=== PATIENT | male | born 1955 | race Hispanic/Latino ===

== ENCOUNTER 2017-08-15 06:09 | Inpatient (IN) | payer OTHER ==
[2017-08-12 11:54] VITALS: BMI 36.1
--- NOTE | 2017-08-15 06:49 | CP.PCM.HP ---
History of Present Illness - History of Present Illness History of Present Illness: CC: Here for scheduled R hip surgery HPI: This is a 61 y/o male with no chronic medical conditions aside from osteoarthritis, who comes in today for R hip replacement. Patient denies any CP , SOB. Denies any f/c/n/v/d. Has no complaints or concerns at this time. Clearance for surgery in Chart by Dr. Jeronimo Daniel ROS: 14 systems reviewed, negative other than HPI MHx: Osteoarthritis SHx: 4 eye surgeries this year, back surgery in the past, appendectomy and removal of a large colon polyp in the past Allergies: None Medications: Per med rec Family Hx: No relevant history found Social Hx: Lives with family, no EtOH, 2 cigars daily Present on Admission - Present on Admission Any Indicators Present on Admission: No Past Patient History - Past Medical History & Family History Past Medical History?: Yes - Past Social History Smoking Status: Heavy Smoker > 10 Cigarettes Daily - CARDIAC Hx Cardiac Disorders: No - PULMONARY Hx Respiratory Disorders: No - NEUROLOGICAL Hx Neurological Disorder: No - HEENT Hx HEENT Problems: Yes Hx Cataracts: Yes - RENAL Hx Chronic Kidney Disease: No - ENDOCRINE/METABOLIC Hx Endocrine Disorders: No - HEMATOLOGICAL/ONCOLOGICAL Hx Blood Disorders: No - INTEGUMENTARY Hx Dermatological Problems: No - MUSCULOSKELETAL/RHEUMATOLOGICAL Hx Musculoskeletal Disorders: Yes Hx Arthritis: Yes (hip) - GASTROINTESTINAL Hx Gastrointestinal Disorders: No - GENITOURINARY/GYNECOLOGICAL Hx Genitourinary Disorders: No - PSYCHIATRIC Hx Psychophysiologic Disorder: No - SURGICAL HISTORY Hx Surgeries: Yes Hx Eye Surgery: Yes (shahana) Other/Comment: detached retina, - ANESTHESIA Hx Anesthesia: Yes Hx Anesthesia Reactions: No Has any member of the family had a problem w/ anesthesia?: No Meds Allergies/Adverse Reactions: Allergies Allergy/AdvReac Type Severity Reaction Status Date / Time No Known Allergies Allergy Verified 08/12/17 11:55 Physical Exam - Constitutional Appears: No Acute Distress - Head Exam Head Exam: ATRAUMATIC, NORMOCEPHALIC - Eye Exam Eye Exam: EOMI, PERRL - ENT Exam ENT Exam: Mucous Membranes Moist - Neck Exam Neck exam: Positive for: Full Rom - Respiratory Exam Respiratory Exam: Clear to Auscultation Bilateral, NORMAL BREATHING PATTERN - Cardiovascular Exam Cardiovascular Exam: REGULAR RHYTHM, +S1, +S2 - GI/Abdominal Exam GI & Abdominal Exam: Normal Bowel Sounds, Soft - Extremities Exam Extremities exam: Positive for: full ROM, normal inspection - Neurological Exam Neurological exam: Alert, CN II-XII Intact, Oriented x3 - Psychiatric Exam Psychiatric exam: Normal Affect, Normal Mood - Skin Skin Exam: Dry, Warm Assessment & Plan (1) Status post right hip replacement Assessment and Plan: 61 y/o male presenting for scheduled R hip replacement 2/2 osteoarthritis. 1) R hip surgery -Clearance in chart -Routine post op care after surgery 2) DVT PPx -- per ortho recs Status: Acute (2) DVT prophylaxis Status: Acute
[2017-08-15 06:52] LABS: MEAN CELL VOLUME 90.9 fl (80.0-94.0); MEAN CORPUSCULAR HEMOGLOBIN 30.7 pg (27.0-31.0); MEAN CORPUSCULAR HGB CONC 33.8 g/dL (33.0-37.0); RBC 4.9 Mil/uL (4.40-5.90); WHITE BLOOD COUNT 9.7 K/uL (4.8-10.8)
[2017-08-15] MEDS ORDERED: Lidocaine 4% (Laryng-O-Jet) Kit MM ONE (07:18)
[2017-08-15] MEDS ORDERED: Propofol 10 mg/ml Inj (20 ML) ONE (07:18)
[2017-08-15] MEDS ORDERED: Phenylephrine 10 mg/ml Inj ONE ×2 (07:18→11:05)
[2017-08-15] MEDS ORDERED: Vecuronium 10 mg Inj ONE (07:18)
[2017-08-15] MEDS ORDERED: Etomidate 20 mg/10ml Inj IV ONE (07:18)
[2017-08-15] MEDS ORDERED: Succinylcholine 200 mg/10 ml Inj IV ONE (07:18)
[2017-08-15] MEDS ORDERED: Bacitracin Ointment 30 GM TUBE ONE (07:23)
[2017-08-15] MEDS ORDERED: Absorbable Gelatin Sponge Size 100 ONE ×2 (07:23→09:52)
[2017-08-15] MEDS ORDERED: Thrombin Topical 5,000 Int Units Spray Kit ONE ×2 (07:24→09:52)
--- NOTE | 2017-08-15 07:42 | CP.PCM.CON ---
History of Present Illness - History of Present Illness History of Present Illness: Orthopedic consultation Dr. Long 61M complains of right hip pain failed conservative mgmt and elected for THR. no history of bleeding/blood clots, stents, CAD PSH: lumbar fusion, removal of polyp, eye surgery right x 4, left x2 PMH: DJD NKDA Meds: baby aspirin, vitamins Review of Systems - Review of Systems All systems: reviewed and no additional remarkable complaints except - Musculoskeletal Musculoskeletal: As Per HPI Past Patient History - Past Medical History & Family History Past Medical History?: Yes Past Family History: Reviewed and not pertinent - Past Social History Smoking Status: Heavy Smoker > 10 Cigarettes Daily - CARDIAC Hx Cardiac Disorders: No - PULMONARY Hx Respiratory Disorders: No - NEUROLOGICAL Hx Neurological Disorder: No - HEENT Hx HEENT Problems: Yes Hx Cataracts: Yes - RENAL Hx Chronic Kidney Disease: No - ENDOCRINE/METABOLIC Hx Endocrine Disorders: No - HEMATOLOGICAL/ONCOLOGICAL Hx Blood Disorders: No - INTEGUMENTARY Hx Dermatological Problems: No - MUSCULOSKELETAL/RHEUMATOLOGICAL Hx Musculoskeletal Disorders: Yes Hx Arthritis: Yes (hip) - GASTROINTESTINAL Hx Gastrointestinal Disorders: No - GENITOURINARY/GYNECOLOGICAL Hx Genitourinary Disorders: No - PSYCHIATRIC Hx Psychophysiologic Disorder: No - SURGICAL HISTORY Hx Surgeries: Yes Hx Eye Surgery: Yes (shahana) Other/Comment: detached retina, - ANESTHESIA Hx Anesthesia: Yes Hx Anesthesia Reactions: No Has any member of the family had a problem w/ anesthesia?: No Meds Allergies/Adverse Reactions: Allergies Allergy/AdvReac Type Severity Reaction Status Date / Time No Known Allergies Allergy Verified 08/12/17 11:55 - Medications Medications: Current Medications Tranexamic Acid 1,000 mg/ (Sodium Chloride) 100 mls @ 10 mls/min IVPB Q3 DERREK Stop: 08/15/17 10:09 Physical Exam - Constitutional Appears: Well, No Acute Distress - Respiratory Exam Respiratory Exam: NORMAL BREATHING PATTERN - Expanded Lower Extremities Exam Right Ankle exam: FULL ROM (calves soft NT neg homans) Neuro vacular tendon exam: no vascular compromise (+DP/PT pulses, sensation intact) - Neurological Exam Neurological exam: Alert, Oriented x3 - Psychiatric Exam Psychiatric exam: Normal Affect, Normal Mood - Skin Skin Exam: Dry, Intact, Normal Color, Warm Results - Vital Signs Recent Vital Signs: Last Vital Signs Temp 98 F 08/15/17 06:55 Pulse 71 08/15/17 06:57 Resp 20 08/15/17 06:55 BP 139/81 08/15/17 06:55 Pulse Ox 97 08/15/17 06:55 - Labs Result Diagrams: 08/16/17 05:40 08/16/17 05:40 Labs: Laboratory Results - last 24 hr 08/15/17 08/15/17 06:45 06:45 WBC 9.7 RBC 4.90 Hgb 15.0 Hct 44.5 MCV 90.9 MCH 30.7 MCHC 33.8 RDW 14.0 Plt Count 222 Crossmatch See Detail BBK History Checked No verified bt Assessment & Plan (1) Degenerative joint disease of right hip Assessment and Plan: NPO T&C for OR Status: Acute
[2017-08-15] MEDS ORDERED: Lactated Ringer's 1,000 ML IV ONE ×4 (07:55→12:45)
[2017-08-15] MEDS ORDERED: Midazolam 2 MG/2 ML VIAL ONE (07:59)
[2017-08-15] MEDS ORDERED: Morphine 1 mg/ml preservative-free Inj(Duramorph) ONE (08:08)
[2017-08-15] MEDS ORDERED: Rocuronium 10 mg/ml (5 ml) ONE ×2 (09:10→11:19)
[2017-08-15] MEDS ORDERED: Dexamethasone 4 mg/1 ml ONE (09:22)
[2017-08-15] MEDS ORDERED: Sevoflurane - Inhalation Anesthetic Liq (250 ml) ONE (10:32)
[2017-08-15] MEDS ORDERED: HEMOSTATIC MATRIX 10 ML DIS.NEEDLE TOP ONE ×2 (10:55→12:40)
--- NOTE | 2017-08-15 11:01 | RAD ---
HISTORY: pre-op COMPARISON: No prior. TECHNIQUE: Chest PA and lateral FINDINGS: LUNGS: No active pulmonary disease. PLEURA: No significant pleural effusion identified. No pneumothorax apparent. CARDIOVASCULAR: No radiographic findings to suggest acute or significant cardiovascular disease. OSSEOUS STRUCTURES: No significant abnormalities. VISUALIZED UPPER ABDOMEN: Normal. OTHER FINDINGS: None. IMPRESSION: No active disease.
[2017-08-15] MEDS ORDERED: ceFAZolin IV 2 gm in Dextrose 4 GM/100 ML BAG IVPB ONE (12:53)
[2017-08-15] MEDS ORDERED: HYDROmorphone 0.5 mg/0.5 ml ISec IVP PRN (13:45)
--- NOTE | 2017-08-15 13:55 | PCM.SURG1 ---
Surgeon's Initial Post Op Note - Surgeon's Notes Surgeon: Mercedes Procurement Representative: LUIS MIGUEL Holland CRNFA Type of Anesthesia: General Endo, Spinal Anesthesia Administered By: DR Horacio Quarles Pre-Operative Diagnosis: Severe Osteoarthritis R hip. Morbid obesity Operative Findings: Severe O/A R HIP with femoral shaft deformity ( Garima type A/ B bone) Post-Operative Diagnosis: severe O/A R Hip. Morbid obesity. iliopsoas contracture. femoral shaft perforation/fracture Operation Performed: R THR. \Open treatment of femoral shaft fracture/ perforation with autograft bone graft. release iliopsoas tendon. auotgraft boine graft to acetabulum and femur Specimen/Specimens Removed: bone cartilage synovium Estimated Blood Loss: EBL {In ML}: 500 Blood Products Given: N/A Drains Used: Wound Vac Post-Op Condition: Fair Date of Surgery/Procedure: 08/15/17 Time of Surgery/Procedure: 09:15 (time in room/anaesthesia indcution time 7:50)
--- NOTE | 2017-08-15 16:30 | RAD ---
PROCEDURE: Right Hip with Pelvis Radiographs. HISTORY: pt in PACU s/p THR COMPARISON: None. FINDINGS: BONES: No acute fracture or destructive bony lesion identified involving pelvic ring or the proximal right femur. Patient is seen to be status post right shoulder replacement as well as inferior lumbar posterior spinal fusion. Note, due to body habitus, suboptimal exposure results. JOINTS: No subluxation or dislocation. Pubic symphysis appears intact although degenerative changes seen the bilateral sacroiliac and left hip joints. SOFT TISSUES: Normal. OTHER FINDINGS: None. IMPRESSION: Limited exam due to body habitus. No fracture dislocation is appreciated. The right total replacement hardware appears in position without subluxation or other failure. Degenerative sacroiliac and left hip joint changes are identified.
[2017-08-15] MEDS ORDERED: ceFAZolin IV 2 gm in Dextrose 2 GM/50 ML BAG IVPB SCH (17:00)
--- NOTE | 2017-08-15 18:04 | RAD ---
PROCEDURE: Fluoroscopy in excess of 1 hour. HISTORY: RIGHT HIP ORIF COMPARISON: None TECHNIQUE: Standard protocol for this study/examination. FINDINGS: Total fluoroscopic time (continuous mode) utilized during the procedure (seconds) 41.7. IMPRESSION: Submitted images from the current procedure: 6.0.
[2017-08-15] MEDS ORDERED: oxyCODONE 10 mg Immediate Release Tab PO PRN (18:14)
[2017-08-15] MEDS: Lactated Ringer's 1,000 ML IV SCH ×2 (19:45→23:05)
[2017-08-15] MEDS: ceFAZolin IV 2 gm in Dextrose 2 GM/50 ML BAG IVPB SCH (21:30)
--- NOTE | 2017-08-15 22:29 | CARD ---
APPROVED REPORT EKG Measurement Heart [id number] <Conclusion> Normal sinus rhythm Normal ECG
--- NOTE | 2017-08-16 00:18 | OP ---
PROCEDURE DATE: 08/15/2017 PREOPERATIVE DIAGNOSES: 1. Severe osteoarthritis of the right hip. 2. Morbid obesity. POSTOPERATIVE DIAGNOSES: 1. Severe osteoarthritis of the right hip. 2. Morbid obesity for the complexion modifier. 3. Iliopsoas contracture. 4. 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 OPERATIVE FINDINGS: 1. Severe osteoarthritis of the right hip. 2. 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 OPERATION PERFORMED: 1. Complex right total hip replacement arthroplasty. 2. Open treatment of the femoral shaft perforation/fracture with autograft bone grafting from the acetabular reaming. 3. Release iliopsoas tendon. 4. Autograft bone grafting to the acetabulum and femur. 5. Positioning of fluoroscope interpretation of video images. SURGEON: Shady Long MD HOTHOUSE WORKER: Radha Livingston PA-C [employer] SENIOR OFFICER: Christen Martinez, certified registered nursing assistant in nursing. ANESTHESIA: General endotracheal anesthesia/spinal anesthesia. ANESTHESIOLOGIST: David Hernandez MD SPECIMENS REMOVED: Bone, cartilage, and synovium. BLOOD LOSS: Approximately 500 mL. Tranexamic acid 2 gram was employed. Cade blood products given. DRAINS: ABDULLAHI wound VAC drain applied. POSTOPERATIVE CONDITION: Stable. TIME IN THE ROOM ANESTHESIA INDUCTION TIME: 07:50. TIME OF SURGERY: 09:15. END TIME: 13:48. OPERATIVE INDICATION: Jason Martin is a 61-year-old gentleman who presented with severe pain and restricted range of motion of the right hip. The patient had a history of prior lumbar surgery, but the patient has a primary severe osteoarthritis of the hip. The patient has been suffering for years with this, the patient presented having failed conservative management consisting of attempted weight loss, activity modification, and therapy. The patient's spinal surgery did not help this hip problem whatsoever. The patient wished the surgery be done as soon as possible. Pros, cons, risks, and benefits of anterior approach total hip replacement arthroplasty were discussed with the patient. The possibility of fracture, nerve injury, mechanical failure, infection, thromboembolic disease, leg-length inequality, secondary, or tertiary surgery was discussed. The patient no longer can withstand the discomfort and wished the surgery to be accomplished. OPERATIVE PROCEDURE: After having obtained informed consent in the above fashion, after having identified side, site, and procedure, and a critical pause/time-out after the satisfactory induction of the anesthetic, the patient identified as Jason Martin, is placed in supine position in the [facility] traction positioner. Right lower extremity traction is applied. Verification of position was offered on image intensification views. This having been accomplished, the all bony prominences are well-padded. After the satisfactory induction of spinal and general anesthesia, after having identified side, site, and procedure, and a critical pause/time-out, after having obtained informed consent, again the patient identified as Jason Martin, is placed in a supine position in the [facility] traction positioner. All bony prominences were well padded. The pannus is reflected. Again the patient is morbidly obese and this patient's surgery does deserve a complexity modifier for the length of the surgery 3 hours and 55 minutes, as well as the morbid obesity, the patient has a BMI of approximately 42. After sterilely prepping and draping, after having identified side, site, procedure, and a critical pause/time-out, after the satisfactory induction of the anesthetic, under the surgeon's direction, the fluoroscope was positioned, video images were generated, and therapeutic decisions were made therefrom. This having been accomplished, the topographic anatomy of the hip was marked, the anterior superior iliac spine, greater trochanter at a point 1 cm distal to the ASIS and 3 cm posterior. An incision was described 4-1/2 inches in length superficial to the tensor fascia femoris muscle. The skin incision was carried down through the skin and subcutaneous tissue. The fascia on the tensor fascia femoris was identified and is divided. This having been accomplished, the tensor fascia femoris is split distally and proximally. The Allis clamp was placed and this having been accomplished, the tensor fascia femoris is taken down from the investing fascia. The Medacta retractor was placed in a vertical fashion and the rectus femoris was identified as well as the posterior aspect of this digastric muscle. This having been accomplished, great care was taken to identify the origin of the tensor fascia femoris, and at this point in time, the reflected head of rectus femoris was identified. With the hip in some mild internal rotation applied by the traction, with the Cobra retractor placed, the reflected head of the rectus femoris is released, small fat pad superficial to that tendon is identified and is removed. This having been accomplished, the hip was brought into neutral and the fascia is carefully divided. After the rectus femoris had been elevated from the underlying fascia and the deep modified Ayana Flaherty retractor was now placed horizontally. This having been accomplished, the fascial layer was divided cell layer by cell layer and the lateral femoral circumflex vessels were identified as well as the anterior branch of the lateral femoral circumflex vessels. This having been accomplished, the Medacta Hohmann retractor was placed and a hip capsulotomy and capsulectomy was accomplished extending to the lesser trochanter and that flap was elevated laterally. The reflected head of rectus femoris is released, having been released, stay sutures applied. The capsule was carefully debrided and released a bit to allow for exposure of the femoral neck. Again, under the surgeon's direction, the fluoroscope was positioned, video images were generated, and therapeutic decisions specifically with respect to the osteotomy were accomplished. This having been accomplished, the femoral neck osteotomy is measured, identified, and the femoral neck osteotomy was accomplished, so as not to osteotomize or injure the greater trochanter. This having been accomplished, the osteotome was placed and the leg, at this point in time, was externally rotated, exposing the cut femoral neck. At this point in time, the corkscrew was introduced into the cut femoral neck and the head and neck are debrided off adhesions and the head and neck is removed from the acetabulum. This having been accomplished, the head having been removed, the head was measured to 48 mm, and at this point in time, the labrum was carefully debrided. The Medacta retractor was placed laterally at the lateral margin of the acetabulum and the posterior labrum was excised and the anterior labrum was excised as well. There is a portion of the pubofemoral ligament, which was identified, and was carefully released. This having been accomplished, the pulvinar was controlled with the Aquamantys and the pulvinar is removed in sections. Hemostasis was controlled with both the electrocautery, the Aquamantys, and thrombin and Gelfoam was employed as well as there was some brisk bleeding in the area of the cotyloid fossa. Retractors having been placed, the preoperative planning having been accomplished, sequential reaming was carried out both medially and then superiorly using the reamer, the reamer again having been placed medially and superiorly. Reaming is accomplished through 54 mm. A 54-mm reamer was trialed and found to be acceptable. Verification of position is offered on image intensification views. At this point in time, autograft bone grafting from the reaming, so the reaming have been and denuded from the articular cartilage. The reamings were placed in the acetabulum and the 54 mm outer shell was impacted for the Medacta dual mobility construct. This having been accomplished, the wound was thoroughly irrigated and attention was turned to the femur. External rotation of the femur was carried out to 45 degrees and approximately to 60 degrees, the pubofemoral ligament is placed on stretch, and the iliopsoas tendon was partially released as well. The pubofemoral ligament is released. The Iliopsoas tendon is released. The iliofemoral ligament is released from the margin of the trochanter 1 cm posterior to the acetabulum in that watershed region. Incision was carried down until the fat is exposed and the trochanter is somewhat mobilized. At this point in time, using a combination of the electrocautery, the piriformis fossa, but not the piriformis tendon, is carefully released. At this point in time, with further external rotation, passing 155 degrees, the Medacta retractors were placed placed medially and the trochanteric retractor placed as well to expose the greater trochanter. The bridge of bone between the neck of the trochanter was removed using the box chisel and the bur. With the lower extremity now adducted, the proximal femur was exposed and a femoral neck osteotomy is accomplished to remove a few more millimeters of bone from the neck cut, which was a bit proud. This having been accomplished, the femoral shaft was found again, there is deformity, specifically Marion type A/B bone was encountered and the bur was needed to open the canal. The canal was opened and the red tooth rasp was placed. At this point in time, the sequential broaching was accomplished and during that broaching, there was a perforation of the femoral shaft, femoral shaft fracture approximately one fingerbreadth-two fingerbreadths below the lesser trochanter. This was easily bypassed greater than two diameters of the femoral shaft with the femoral component. This having been accomplished, again, because the nature of the deformity and the severe Marion type A bone, the guidewire for the flexible reamers introduced into the femur and flexible reaming was carried out to approximately 9.5 mm. At this point in time, the rasp is introduced and the rat tooth rasp was introduced past the perforation. At this point in time, sequential broaching was carried out to a #4 femoral component. It should be noted that the perforation/fracture of the femoral shaft was treated with autograft bone grafting. Copious autograft bone grafting was accomplished, the rasp was used to trial the #54 outer bearing with 28 mm zero neutral head. The fit was found to be excellent, the push-pull was found to be stable, the leg lengths were found to be precisely equal. This having been accomplished, the rasp was removed. The Medacta #4 femoral component was introduced with a 28 mm ceramic head and the 54 mm outer bearing. This was affixed. The hip was reduced and found to be stable in all planes and at this point in time, FloSeal was used to control bleeding. There was some bleeding encountered with the mobilization of the femur. It should be noted that the patient's femur was extremely rigid and very difficult to mobilize. The verification of position is offered on image intensification views. Again autograft bone grafting was accomplished copiously into the fracture in the intramedullary fashion in an impaction grafting type of technique. The femoral stem was introduced. The 28 mm head and the outer bearing were applied. The hip was reduced and found to be stable in all planes. The wound was thoroughly irrigated. Hemostasis controlled with the Aquamantys. Closure is in layers. It should be noted that because of the excessive retracting, the skin had to be modified. Excision of skin, subcutaneous tissue, and a bit of muscle was accomplished. Hemostasis controlled. Closure of the fascia on the tensor fascia femoris was with #1 Quill, is followed by 0 Quill, 2-0 Vicryl, and 2-0 Quill plastic closure with interrupted 4-0 nylon. A compression dressing was applied and the ABDULLAHI wound VAC was applied as well. The ABDULLAHI wound VAC is carefully applied to the wound and the wound VAC was applied. OPERATIVE PROCEDURE: 1. Complex right total hip replacement arthroplasty. 2. Open treatment of the femoral shaft fracture perforation proximally. 3. Release iliopsoas tendon. 4. Autograft bone graft to the acetabulum and the femur. 5. Application of ABDULLAHI wound VAC. 6. Positioning of fluoroscope interpretation of video images. Again it should be noted that the assistantship of Radha Livingston PA-C was essential to the completion of this operative goal as was Christen Martinez, certified registered nursing assistant in nursing. Shady Long MD
[2017-08-16] MEDS: ceFAZolin IV 2 gm in Dextrose 2 GM/50 ML BAG IVPB SCH ×3 (05:17→20:58)
[2017-08-16 06:12] LABS: HEMOGLOBIN 10.9 g/dL (12.0-18.0); MEAN CORPUSCULAR HEMOGLOBIN 30.3 pg (27.0-31.0); MEAN CORPUSCULAR HGB CONC 33.3 g/dL (33.0-37.0); RBC 3.59 Mil/uL (4.40-5.90); RED CELL DISTRIBUTION WIDTH 13.8 % (11.5-14.5); WHITE BLOOD COUNT 14.1 K/uL (4.8-10.8)
[2017-08-16 06:43] LABS: BLOOD UREA NITROGEN 34 mg/dl (9-20); GFR AFRICAN-AMERICAN > 60; GFR NON-AFRICAN AMERICAN 51
--- NOTE | 2017-08-16 07:44 | CP.PCM.PN ---
Subjective - Date & Time of Evaluation Date of Evaluation: 08/16/17 Time of Evaluation: 07:43 - Subjective Subjective: Patient seen and examined at bedside comfortable. Minimal pain this AM. Olivia diet. No acute events overnight. Objective - Vital Signs/Intake and Output Vital Signs (last 24 hours): Temp Pulse Resp BP Pulse Ox 98.1 F 85 19 117/74 94 L 08/16/17 03:30 08/16/17 03:30 08/16/17 03:30 08/16/17 03:30 08/16/17 03:30 Intake and Output: 08/16/17 08/16/17 06:59 18:59 Output Total 850 Balance -850 - Medications Medications: Current Medications Acetaminophen (Tylenol 325mg Tab) 650 mg PO Q4 PRN PRN Reason: Fever 101 degrees fahrenheit Acetaminophen (Tylenol 325mg Tab) 650 mg PO Q6 [facility] Docusate Sodium (Colace) 100 mg PO BID [facility] Last Admin: 08/15/17 17:38 Dose: 100 mg Enoxaparin Sodium (Lovenox) 40 mg SC DAILY [facility] PRN Reason: Protocol Ferrous Sulfate (Feosol) 325 mg PO BID [facility] Last Admin: 08/15/17 17:38 Dose: 325 mg Folic Acid (Folic Acid) 1 mg PO DAILY [facility] Lactated Ringer's (Lactated Ringer's) 1,000 mls @ 100 mls/hr IV .Q10H [facility] Lactated Ringer's (Lactated Ringer's) 1,000 mls @ 100 mls/hr IV .Q10H [facility] Last Admin: 08/15/17 23:05 Dose: Not Given Cefazolin Sodium/Dextrose (Ancef Iv 2 Gm Duplex) 2 gm in 50 mls @ 50 mls/hr IVPB Q8H [facility] PRN Reason: Protocol Last Admin: 08/16/17 05:17 Dose: 50 mls/hr Metoclopramide HCl (Reglan) 10 mg IVP Q6 PRN PRN Reason: Nausea/Vomiting Morphine Sulfate (Morphine) 2 mg IVP Q4 PRN PRN Reason: Pain, severe (8-10) Ondansetron HCl (Zofran Inj) 4 mg IVP ONCE PRN PRN Reason: Nausea/Vomiting Oxycodone HCl (Oxycodone Immediate Release Tab) 10 mg PO Q6 PRN PRN Reason: Pain, moderate (4-7) - Labs Labs: 08/16/17 05:40 08/16/17 05:40 - Extremities Exam Additional comments: R hip: ABDULLAHI dressing intact, no tenderness, mild swelling sensation intact SP/DP/TN motor intact EHL/FHL/TA/G pedal pulses intact comps soft NT Assessment and Plan (1) Degenerative joint disease of right hip Assessment & Plan: POD#1 s/p R SELVIN doing very well -pain control -PT/OT TTWB -DVT ppx -complete postop abx -discharge planning -above d/w Dr. Long in agreement Status: Acute
[2017-08-16] MEDS: Lactated Ringer's 1,000 ML IV SCH ×4 (08:48→20:00)
--- NOTE | 2017-08-16 11:22 | CP.PCM.PN ---
Subjective - Date & Time of Evaluation Date of Evaluation: 08/16/17 Time of Evaluation: 11:17 - Subjective Subjective: pt doing well pain well controlled participating with PT denies CP, SOB, and any leg tenderness. HD stable NAD Objective - Vital Signs/Intake and Output Vital Signs (last 24 hours): Temp Pulse Resp BP Pulse Ox 98.0 F 85 19 123/78 94 L 08/16/17 07:57 08/16/17 07:57 08/16/17 07:57 08/16/17 07:57 08/16/17 07:57 Vitals Reviewed GEN: WDWN, alert, cooperative HEENT: NCAT, PERRL, EOMI HEART: RRR, +S1S2, NO MRG LUNG: CTAB, NO WRR ABD: soft, NT, ND, No HSM, No masses EXT: normal pedal pulses, normal capillary refill NEURO: awake, alert, NV intact SKIN: warm, dry PSYCH: normal mood, normal affect Intake and Output: 08/16/17 08/16/17 06:59 18:59 Output Total 850 Balance -850 - Medications Medications: Current Medications Acetaminophen (Tylenol 325mg Tab) 650 mg PO Q4 PRN PRN Reason: Fever 101 degrees fahrenheit Acetaminophen (Tylenol 325mg Tab) 650 mg PO Q6 [facility] Last Admin: 08/16/17 08:52 Dose: 650 mg Docusate Sodium (Colace) 100 mg PO BID [facility] Last Admin: 08/16/17 08:45 Dose: 100 mg Enoxaparin Sodium (Lovenox) 40 mg SC DAILY [facility] PRN Reason: Protocol Ferrous Sulfate (Feosol) 325 mg PO BID [facility] Last Admin: 08/16/17 08:45 Dose: 325 mg Folic Acid (Folic Acid) 1 mg PO DAILY [facility] Last Admin: 08/16/17 08:45 Dose: 1 mg Lactated Ringer's (Lactated Ringer's) 1,000 mls @ 100 mls/hr IV .Q10H [facility] Last Admin: 08/16/17 08:48 Dose: Not Given Lactated Ringer's (Lactated Ringer's) 1,000 mls @ 100 mls/hr IV .Q10H [facility] Last Admin: 08/16/17 08:48 Dose: Not Given Cefazolin Sodium/Dextrose (Ancef Iv 2 Gm Duplex) 2 gm in 50 mls @ 50 mls/hr IVPB Q8H [facility] PRN Reason: Protocol Last Admin: 08/16/17 05:17 Dose: 50 mls/hr Metoclopramide HCl (Reglan) 10 mg IVP Q6 PRN PRN Reason: Nausea/Vomiting Morphine Sulfate (Morphine) 2 mg IVP Q4 PRN PRN Reason: Pain, severe (8-10) Ondansetron HCl (Zofran Inj) 4 mg IVP ONCE PRN PRN Reason: Nausea/Vomiting Oxycodone HCl (Oxycodone Immediate Release Tab) 10 mg PO Q6 PRN PRN Reason: Pain, moderate (4-7) - Labs Labs: 08/16/17 05:40 08/16/17 05:40 Assessment and Plan - Assessment and Plan (Free Text) Plan: 61 y/o male with no chronic medical conditions aside from osteoarthritis, who comes in today for R hip replacement. Failed outpatient conservative management. S/P total R Hip. Primary Osteoarthritis S/P Total R Hip replacement - Dr. Long Orthopedic surgery - Pain control - PT/OT - Incentive spirometry - Completed PPX Ancef x3 - Zofran/Reglan PRN NAUSEA Azotemia - continue LR@ 100 cc/hr
[2017-08-16] MEDS: Enoxaparin 40 mg Syringe SC SCH (15:31)
--- NOTE | 2017-08-17 07:48 | CP.PCM.PN ---
Subjective - Date & Time of Evaluation Date of Evaluation: 08/17/17 Time of Evaluation: 07:48 - Subjective Subjective: Patient seen and examined at bedside comfortable. No complaints of hip pain. Complains of increased urinary frequency. No other complaints. Objective - Vital Signs/Intake and Output Vital Signs (last 24 hours): Temp Pulse Resp BP Pulse Ox 98.4 F 97 H 19 135/84 95 08/17/17 00:00 08/17/17 00:00 08/17/17 00:00 08/17/17 00:00 08/17/17 00:00 - Medications Medications: Current Medications Acetaminophen (Tylenol 325mg Tab) 650 mg PO Q4 PRN PRN Reason: Fever 101 degrees fahrenheit Acetaminophen (Tylenol 325mg Tab) 975 mg PO Q8 [facility] Last Admin: 08/17/17 00:47 Dose: 975 mg Docusate Sodium (Colace) 100 mg PO BID [facility] Last Admin: 08/16/17 17:30 Dose: 100 mg Enoxaparin Sodium (Lovenox) 40 mg SC DAILY [facility] PRN Reason: Protocol Last Admin: 08/16/17 15:31 Dose: 40 mg Ferrous Sulfate (Feosol) 325 mg PO BID [facility] Last Admin: 08/16/17 17:29 Dose: 325 mg Folic Acid (Folic Acid) 1 mg PO DAILY [facility] Last Admin: 08/16/17 08:45 Dose: 1 mg Lactated Ringer's (Lactated Ringer's) 1,000 mls @ 100 mls/hr IV .Q10H [facility] Last Admin: 08/16/17 20:00 Dose: Not Given Metoclopramide HCl (Reglan) 10 mg IVP Q6 PRN PRN Reason: Nausea/Vomiting Morphine Sulfate (Morphine) 2 mg IVP Q4 PRN PRN Reason: Pain, severe (8-10) Ondansetron HCl (Zofran Inj) 4 mg IVP ONCE PRN PRN Reason: Nausea/Vomiting Oxycodone HCl (Oxycodone Immediate Release Tab) 10 mg PO Q6 PRN PRN Reason: Pain, moderate (4-7) - Labs Labs: 08/16/17 05:40 08/16/17 05:40 - Extremities Exam Additional comments: R hip: ABDULLAHI dressing intact, no tenderness, mild swelling sensation intact SP/DP/TN motor intact EHL/FHL/TA/G pedal pulses intact comps soft NT Assessment and Plan (1) Degenerative joint disease of right hip Assessment & Plan: POD#2 s/p R SELVIN doing very well -urinary freq likely due to IV fluids, d/c IV fluids -PT/OT, progress to foot flat 10% WB -DVT ppx -ABDULLAHI dressing changed, maintain ABDULLAHI dressing until office visit -f/u in office this Saturday 08/19 -orthopedically stable for discharge to [facility] -above d/w Dr. Long in agreement Status: Acute
[2017-08-17 08:27] VITALS: BP 117/73; PULSE 92; RESP 20; TEMP 97.9; O2SAT 94
[2017-08-17 08:32] LABS: HEMOGLOBIN 10.1 g/dL (12.0-18.0); MEAN CELL VOLUME 89.5 fl (80.0-94.0); MEAN CORPUSCULAR HEMOGLOBIN 30.4 pg (27.0-31.0); RBC 3.31 Mil/uL (4.40-5.90); WHITE BLOOD COUNT 15.4 K/uL (4.8-10.8)
[2017-08-17 08:42] LABS: BLOOD UREA NITROGEN 32 mg/dl (9-20); CALCIUM 8.5 mg/dL (8.4-10.2); GFR AFRICAN-AMERICAN > 60; GFR NON-AFRICAN AMERICAN > 60
[2017-08-17] MEDS: Enoxaparin 40 mg Syringe SC SCH (08:58)
--- NOTE | 2017-08-17 11:38 | CP.PCM.DIS ---
Provider - Provider Date of Admission: 08/15/17 11:25 Attending physician: Denice Kulkarni MD Primary care physician: Shady Long III, MD Time Spent in preparation of Discharge (in minutes): 30 Diagnosis - Discharge Diagnosis (1) Degenerative joint disease of right hip Status: Acute (2) Status post right hip replacement Status: Acute Hospital Course - Lab Results Lab Results: Most Recent Lab Values WBC 15.4 K/uL (4.8-10.8) H 08/17/17 08:00 RBC 3.31 Mil/uL (4.40-5.90) L 08/17/17 08:00 Hgb 10.1 g/dL (12.0-18.0) L 08/17/17 08:00 Hct 29.7 % (35.0-51.0) L 08/17/17 08:00 MCV 89.5 fl (80.0-94.0) 08/17/17 08:00 MCH 30.4 pg (27.0-31.0) 08/17/17 08:00 MCHC 34.0 g/dL (33.0-37.0) 08/17/17 08:00 RDW 14.0 % (11.5-14.5) 08/17/17 08:00 Plt Count 161 K/uL (130-400) 08/17/17 08:00 Sodium 135 mmol/l (132-148) 08/17/17 08:00 Potassium 3.7 MMOL/L (3.6-5.0) 08/17/17 08:00 Chloride 104 mmol/L (98-107) 08/17/17 08:00 Carbon Dioxide 24 mmol/L (22-30) 08/17/17 08:00 Anion Gap 11 (10-20) 08/17/17 08:00 BUN 32 mg/dl (9-20) H 08/17/17 08:00 Creatinine 1.2 mg/dl (0.8-1.5) 08/17/17 08:00 Est GFR ( Amer) > 60 08/17/17 08:00 Est GFR (Non-Af Amer) > 60 08/17/17 08:00 Random Glucose 147 mg/dL (75-110) H 08/17/17 08:00 Calcium 8.5 mg/dL (8.4-10.2) 08/17/17 08:00 Blood Type O NEGATIVE 08/15/17 06:45 Blood Type Confirm O NEGATIVE 08/15/17 07:20 Antibody Screen Negative 08/15/17 06:45 Crossmatch See Detail 08/15/17 06:45 BBK History Checked No verified bt 08/15/17 06:45 - Hospital Course Hospital Course: 61 y/o male with no chronic medical conditions aside from osteoarthritis, who comes in today for R hip replacement. Failed outpatient conservative management. S/P total R Hip. Patient tolerating PT well, stable for discharge to [facility] today. HD stable, NAD. Primary Osteoarthritis S/P Total R Hip replacement - Dr. Long Orthopedic surgery - Pain control - PT/OT - Incentive spirometry - Completed PPX Ancef x3 - Zofran/Reglan PRN NAUSEA - dvt ppx per ORTHO Azotemia - resolving Discharge Exam - Head Exam Additional comments: Vitals Reviewed GEN: WDWN, alert, cooperative HEENT: NCAT, PERRL, EOMI HEART: RRR, +S1S2, NO MRG LUNG: CTAB, NO WRR ABD: soft, NT, ND, No HSM, No masses EXT: normal pedal pulses, normal capillary refill NEURO: awake, alert, no focal deficits SKIN: warm, dry PSYCH: normal mood, normal affect Discharge Plan - Follow Up Plan Condition: GOOD Disposition: TRANSF TO SNF Instructions: Anterior Hip Replacement (DC) Referrals: Shady Long III, MD [Primary Care Provider] -
== END 2017-08-17 12:38 | DRG 470 ==
LOC: H.OPSURG 06:09 → H.MEDSURG1 11:25 → H.OPSURG 16:25
PROVIDERS: ADMIT Internal Medicine; ATTEND Internal Medicine
PROC: 0SR90JZ Replacement of Right Hip Joint with Synthetic Substitute, Open Approach (ICD-10-PCS; principal; 2017-08-15 07:45)
DX: M16.11 Unilateral primary osteoarthritis, right hip (principal); Z68.41 Body mass index [BMI] 40.0-44.9, adult; F17.210 Nicotine dependence, cigarettes, uncomplicated; E66.01 Morbid (severe) obesity due to excess calories; Z86.010 Personal history of colon polyps; R79.89 Other specified abnormal findings of blood chemistry